=== PATIENT | female | born 1965 | race Caucasian/White ===

== ENCOUNTER 2017-03-15 01:22 | Emergency (ER) | payer BC, OTHER ==
[2017-03-15] MEDS ORDERED: LORazepam 1 MG TABLET ONE (02:06)
[2017-03-15 02:09] LABS: BLOOD UREA NITROGEN 9 mg/dL (7-17); CALCIUM 9.6 mg/dL (8.4-10.2); CHLORIDE 96 mmol/L (98-107); EST GLOMERULAR FILTRATION RATE > 60 mL/min; GLUCOSE 113 mg/dL (70-100); MAGNESIUM 1.9 mg/dL (1.6-2.3); POTASSIUM 3.7 mmol/L (3.5-5.1); SODIUM 138 mmol/L (137-145)
[2017-03-15 02:25] LABS: BASOPHIL# 0.1 X 10^3uL (0.0-0.1); BASOPHILS 1.2 % (0.0-2.0); EOSINOPHILS 3.6 % (0.0-6.0); EOSINOPHILS# 0.2 X 10^3uL (0.0-0.4); HEMATOCRIT 45.7 % (36.0-48.0); HEMOGLOBIN 15.9 g/dL (12.0-16.0); LYMPHOCYTES 25.3 % (20.0-40.0); LYMPHOCYTES# 1.1 X 10^3uL (0.8-3.8); MEAN CELL VOLUME 94.6 fL (80.0-100.0); MEAN CORPUS. HGB CONCENTRATION 34.7 g/dL (32.0-36.0); MEAN CORPUSCULAR HEMOGLOBIN 32.8 pg (29.0-35.0); MEAN PLATELET VOLUME 8.6 fL (7.4-10.4); MONOCYTES 8.3 % (2.0-10.0); MONOCYTES# 0.4 X 10^3uL (0.2-1.0); NEUTROPHILS 61.6 % (54.0-75.0); NEUTROPHILS# 2.7 X 10^3uL (2.6-6.7); PLATELET COUNT 170 X 10^3uL (130-440); RED BLOOD COUNT 4.83 X 10^6uL (4.20-6.10); RED CELL DISTRIBUTION WIDTH 12.7 % (11.5-14.5); TROPONIN I < 0.012 ng/mL (0.00-0.034); WHITE BLOOD COUNT 4.5 X 10^3uL (3.9-10.7)
[2017-03-15 02:40] LABS: THYROID STIMULATING HORMONE 4.27 uIU/mL (0.47-4.68)
--- NOTE | 2017-03-15 03:09 | ER NURSING DOCUMENTATION ---
Nurse's Notes [facility] Name:Carmen Guillen Age:52 yrs Sex:Female :1965 Arrival Date:03/15/2017 Time:01:22 BedTrauma-C Private MD:Laith Meyers Diagnosis:Palpitations Sinus Tachycardia;Dehydration;Anxiety Reaction Presentation: 03/15 01:38 Presenting complaint: Patient states: she has an elevated heart rate. denies pain or bw2 nausea. Transition of care: patient was not received from another setting of care. 01:38 Method Of Arrival: Walk In [facility] 01:38 Acuity: RICHARD 2 2 Triage Assessment: 01:39 General: Appears in no apparent distress, Behavior is anxious. Pain: Denies pain. bw2 Respiratory: No deficits noted. GI: No deficits noted. Historical: - Allergies: PENICILLINS; - Tetanus: < 10 years. - Ebola Screening: : Patient negative for fever greater than or equal to 101.5 degrees Fahrenheit, and additional compatible Ebola Virus Disease symptoms. Patient denies exposure to infectious person. Patient denies travel to an Ebola-affected area in the 21 days before illness onset. No symptoms or risks identified at this time. . - Immunization history: Flu Vaccine < 1 year. - Social history: Smoking status: Patient states was never smoker of tobacco. Screenin:56 Infectious Disease Risk None. Abuse screen: Denies threats or abuse. Denies injuries bw2 from another. Nutritional screening: No deficits noted. Assessment: 01:56 See Triage Assessment done by same RN. bw2 Vital Signs: 01:39 BP 133 / 78; Pulse 137; Resp 18; Temp 98.2(O); Pulse Ox 95% ; Weight 90.72 kg; Height 5 bw2 ft. 9 in. (175.26 cm); Pain 0/10; 02:28 BP 135 / 69; Pulse 90; Resp 18; Pulse Ox 95% ; bw2 03:06 BP 135 / 80; Pulse 89; Resp 18; Pulse Ox 97% ; Pain 0/10; bw2 01:39 Body Mass Index 29.53 (90.72 kg, 175.26 cm) bw2 Abdoul Coma Score: 02:09 Eye Response: spontaneous(4). Verbal Response: oriented(5). Motor Response: obeys cd commands(6). Total: 15. ED Course: 01:24 Patient arrived in ED. jt 01:24 Lucy José is Primary Nurse. bw2 01:25 Laith Meyers MD is Private Physician. jt 01:28 EKG done. (by ED staff). bw2 01:38 Triage completed. bw2 01:46 Dillon Chopra MD is Attending Physician. cd 01:57 Inserted peripheral IV: 20 gauge in right antecubital area and blood collected. bw2 01:57 Valuables Remains with patient Call light in reach. Side rails up X2. shelter monitor bw2 on. Pulse ox on. NIBP on. 02:58 Laith Meyers MD is Referral Physician. cd 11:05 EKG attached tg Administered Medications: 01:55 Drug: NS 0.9% 1000 ml; Route: IV; Rate: bolus; Site: right antecubital; bw2 03:06 Follow up: IV Status: Completed infusion bw2 01:55 Drug: Ativan 1 mg; Route: PO; bw2 02:21 Follow up: Response: Anxiety decreased bw2 01:56 Drug: Metoprolol 25 mg; Route: PO; bw2 02:21 Follow up: Response: No adverse reaction bw2 Outcome: 02:58 Discharge ordered by MD. cd 03:06 Discharged to home via wheelchair, with significant other. bw2 03:06 Condition: stable 03:06 Discharge Assessment: Patient awake, alert and oriented x 3. No cognitive and/or functional deficits noted. Patient verbalized understanding of disposition instructions. 03:06 Discharge instructions given to patient, significant other, Instructed on discharge instructions, follow up and referral plans. Demonstrated understanding of instructions. 03:08 Patient left the ED. bw2 03/16 15:42 Discharge F/U Call: Unable to reach: no answer lc Signatures: Koko Zaman RN RN tg Katarina Nvaas RN RN Dillon Choi MD MD cd Tennant, Joanne jt Wisely, Beth bw2
--- NOTE | 2017-03-15 03:09 | ER PHYSICIAN DOCUMENTATION ---
Physician Documentation [facility] Name:Carmen Guillen Age:52 yrs Sex:Female :1965 Arrival Date:03/15/2017 Time:01:22 BedTrauma-C Private MD:Laith Meyers EDroseDillon Disposition: 03/15/17 02:58 Discharged to Home/Self Care. Impression: Palpitations Sinus Tachycardia, Dehydration, Anxiety Reaction. - Condition is Good. - Discharge Instructions: DEHYDRATION (7y-Adult), Anguish - ANXIETY REACTION. - Medical Reconciliation form form. - Follow up: Laith Meyers MD; When: 1 - 2 days; Reason: Recheck today's complaints, Continuance of care. - Problem is new. - Symptoms are resolved. - Notes: Drink 2 -3 quarts of water each day.... Rest tomorrow. Follow up with Dr. Meyers on ThursdayMarch 16 for recheck. HPI: 03/15 01:40 This 52 yrs old Female presents to ER via Walk In with complaints of cd Palpitations. 01:40 The patient presents with a history of heart racing. Context: The symptoms occur at cd rest, with anxiety, patient reports her HR was high, starting at 104...then started going higher at 22:30 PM . She just returned from [place] and has had very little water PO intake today. She does not go to the physician, but states she has never had a PE, DVT, CO or DM. She does not know if she has had Thyroid Disease before. She does take in any stimulant, street drugs, etc. She denies Chest Pain, SOB or calf swelling or pain. She denies fever, chills or URI symptoms.. Onset: The symptom(s)/episode began/occurred acutely, at 22:30. Duration: The patient or guardian reports a single episode, that is still ongoing. Associated signs and symptoms: Pertinent positives: anxiety, lightheadedness, nausea, Pertinent negatives: chest pain, cough, fever, SOB, syncope, near-syncope, vertigo, vomiting. The patient has not experienced similar symptoms in the past. 01:40 Severity of symptoms: At their worst the symptoms were mild in the emergency department cd the symptoms are unchanged. The patient has not recently seen a physician. Historical: - Allergies: PENICILLINS; - Tetanus: < 10 years. - Ebola Screening: : Patient negative for fever greater than or equal to 101.5 degrees Fahrenheit, and additional compatible Ebola Virus Disease symptoms. Patient denies exposure to infectious person. Patient denies travel to an Ebola-affected area in the 21 days before illness onset. No symptoms or risks identified at this time. . - Immunization history: Flu Vaccine < 1 year. - Social history: Smoking status: Patient states was never smoker of tobacco. ROS: 02:08 Eyes: Negative for injury, pain, redness, discharge, blurry vision and loss of vision. cd ENT: Negative for injury, pain, epistaxis and discharge. Neck: Negative for injury, pain, stiffness and swelling. Respiratory: Negative for shortness of breath, dyspnea on exertion, cough, sputum production, wheezing, hemoptysis and pleuritic chest pain. Back: Negative for injury, pain or muscle spasms. : Negative for injury, bleeding, discharge, dysuria, frequency, urgency and swelling. MS/Extremity: Negative for injury, deformity, edema, calf tenderness, pain or coldness. Skin: Negative for injury, rash, itching and discoloration. 02:08 Neuro: Negative for headache, weakness, numbness, tingling, and seizure. cd 02:08 Constitutional: Positive for poor PO intake, Negative for body aches, chills, fever. 02:08 Cardiovascular: Positive for palpitations, Negative for chest pain, edema, orthopnea. 02:08 Abdomen/GI: Positive for nausea, anorexia, Negative for abdominal pain, vomiting, diarrhea. 02:08 All other systems are negative. Exam: Head/Face: Normocephalic, atraumatic. Eyes: Pupils equal round and reactive to light, extra-ocular motions intact. Lids and lashes normal. Conjunctiva and sclera are non-icteric and not injected. Cornea within normal limits. Periorbital areas with no swelling, redness, or edema. 02:09 ENT: Nares patent. No nasal discharge, no septal abnormalities noted. Tympanic cd membranes are normal and external auditory canals are clear. Oropharynx with no redness, swelling, or masses, exudates, or evidence of obstruction, uvula midline. Mucous membranes very dry Neck: Trachea midline, no thyromegaly or masses palpated, and no cervical lymphadenopathy. Supple, full range of motion without nuchal rigidity, or vertebral point tenderness. No Meningismus. Chest/axilla: Normal chest wall appearance and motion. Nontender with no deformity. No lesions are appreciated. Abdomen/GI: Soft, non-tender, with normal bowel sounds. No distension or tympany. No guarding or rebound. No evidence of tenderness throughout. Back: No spinal tenderness. No costovertebral tenderness. Full range of motion. Skin: Warm, dry with normal turgor. Normal color with no rashes, no lesions, and no evidence of cellulitis. MS/ Extremity: Pulses equal, no cyanosis. Neurovascular intact. Full, normal range of motion. 02:09 Neuro: Awake and alert, GCS 15, oriented to person, place, time, and situation. Cranial nerves II-XII grossly intact. Motor strength 5/5 in all extremities. Sensory grossly intact. Cerebellar exam normal. Normal gait. 02:09 Constitutional: The patient appears alert, awake, non-diaphoretic, non-toxic, well developed, well nourished, anxious. 02:09 Cardiovascular: Rate: tachycardic, actual rate is 137 bpm, Rhythm: regular, Pulses: no pulse deficits are appreciated, Heart sounds: normal, Edema: is not appreciated. 02:09 Respiratory: the patient does not display signs of respiratory distress, Respirations: normal, no acute changes, Breath sounds: are normal, clear throughout, rales, are not appreciated, rhonchi, are not appreciated, wheezing, is not appreciated. Vital Signs: 01:39 BP 133 / 78; Pulse 137; Resp 18; Temp 98.2(O); Pulse Ox 95% ; Weight 90.72 kg; Height 5 bw2 ft. 9 in. (175.26 cm); Pain 0/10; 02:28 BP 135 / 69; Pulse 90; Resp 18; Pulse Ox 95% ; bw2 03:06 BP 135 / 80; Pulse 89; Resp 18; Pulse Ox 97% ; Pain 0/10; bw2 01:39 Body Mass Index 29.53 (90.72 kg, 175.26 cm) bw2 Abdoul Coma Score: 02:09 Eye Response: spontaneous(4). Verbal Response: oriented(5). Motor Response: obeys cd commands(6). Total: 15. MDM: 01:35 Data interpreted: Pulse oximetry: on room air is 92 %. Interpretation: normal. cd 01:46 Patient medically screened. cd 02:00 Differential diagnosis: arrythmia, dehydration, stress disorder, CO, PE. cd 02:05 Data reviewed: vital signs, nurses notes, old medical records, EKG, and as a result, I cd will continue to observe the patient, administer IV fluids, NS bolus, NS maintenence, prescribe sedation medication, lorazepam, and Metopolol. 02:50 Response to treatment: the patient's symptoms have markedly improved after treatment, cd the patient's condition has returned to base line, the patient is now symptom free, patient is well hydrated. and as a result, I will discharge patient. 02:57 Counseling: I had a detailed discussion with the patient and/or guardian regarding: the cd historical points, exam findings, and any diagnostic results supporting the discharge/admit diagnosis, lab results, the need for outpatient follow up, for a recheck, with the patient's primary care provider, to return to the emergency department if symptoms worsen or persist or if there are any questions or concerns that arise at home. 03:02 ECG:. cd 11:05 EKG attached tg 03/15 02:25 Order name: BASIC METABOLIC PANEL [facility] 03/15 02:30 Interpretation: Normal. 03/15 02:25 Order name: MAGNESIUM [facility] 03/15 02:30 Interpretation: Normal. 03/15 02:25 Order name: TROPONIN I [facility] 03/15 02:30 Interpretation: Normal. 03/15 02:26 Order name: CBC AUTO DIF, MDIF/RMOR IF IND [facility] 03/15 02:30 Interpretation: Normal. 03/15 02:41 Order name: THYROID STIMULATING HORMONE [facility] 03/15 02:43 Interpretation: Normal. 03/15 03:24 Order name: DDIMER [facility] 03/15 01:46 Order name: 12-lead EKG; Complete Time: cd 03/15 01:46 Order name: Iv Saline Lock; Complete Time: cd 03/15 01:46 Order name: Place Patient On Monitor; Complete Time: : cd 03/15 01:46 Order name: Pulse Ox Continuous; Complete Time: : cd EC:29 Rate is 121 beats/min. Rhythm is regular. MO interval is normal. QRS interval is cd prolonged. QT interval is normal. No Q waves. T waves are Normal. No ST changes noted. Clinical impression: Sinus Tachycardia, Incomplete RBBB and LAFB, No acute Ischemic changes. Interpreted by me. Dispensed Medications: 01:55 Drug: NS 0.9% 1000 ml; Route: IV; Rate: bolus; Site: right antecubital; bw2 03:06 Follow up: IV Status: Completed infusion bw2 :55 Drug: Ativan 1 mg; Route: PO; bw2 02:21 Follow up: Response: Anxiety decreased bw2 01:56 Drug: Metoprolol 25 mg; Route: PO; bw2 02:21 Follow up: Response: No adverse reaction bw2 Signatures: Koko Zaman RN RN Dillon Morfin MD MD cd Wisely, Beth bw2
== END 2017-03-15 03:09 | disposition home or self-care (01) ==
LOC: ER 01:22
DX: R00.0 Tachycardia, unspecified (principal); R00.2 Palpitations; E86.0 Dehydration; R11.0 Nausea; F41.9 Anxiety disorder, unspecified
CPT/HCPCS: 80048; 83735; 84443; 84484; 85025; 85379; 93005; 96360; 99284